=== PATIENT | male | born 1980 | race Caucasian/White ===

== ENCOUNTER 2016-06-10 18:01 | Emergency (ER) | payer MEDICARE ==
--- NOTE | ~2016-06-10 | ER ---
[facility] AGE: 35 Y [address] ROOM: [place], [place] [address] LOCATION: [facility] ADMIT DATE: 06/10/2016 ER/Outpatient Report DISCHARGE DATE: 06/10/2016 FAMILY PHYSICIAN: Physician, Unknown ATTENDING PHYSICIAN: Angle Sylvester Time of Arrival: 1801 hours. Time of Evaluation: 1820 hours. IDENTIFICATION: A 35-year-old female. CHIEF COMPLAINT: Chest pain. HISTORY OF PRESENT ILLNESS: The patient is a 35-year-old, hearing impaired male with chest pain. History was obtained through the [employer] dealer. 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 Approximately 2 weeks ago, he was seen in [place] by his family practice doctor, Dr. Hand at [facility] in [place] and started on amlodipine 5 mg daily. He also apparently had an abnormal UA which was rechecked last week. He had some microscopic hematuria, it sounds like. He has been taking the amlodipine just as needed. He did not understand that you need to take it every day. He has not yet taken it today. Today, he has had some intermittent chest pain. It is a sharp pain, left chest, no radiation and no real other associated symptoms. However, he does have a pretty significant family history of aortic abnormalities including aortic dissection and aneurysm on his dad side of the family. PAST MEDICAL HISTORY: ALLERGIES: NO KNOWN DRUG ALLERGIES. CURRENT MEDICATIONS: Amlodipine 5 mg daily. MEDICAL PROBLEMS: 1. Hearing impaired. 2. Recent diagnosis of hypertension. 3. Previous right ankle injury. 4. Previous wrist injury. SOCIAL HISTORY: [facility] AGE: 35 Y [address] ROOM: [place], [place] [address] LOCATION: [facility] ADMIT DATE: 06/10/2016 ER/Outpatient Report DISCHARGE DATE: 06/10/2016 FAMILY PHYSICIAN: Physician, Unknown ATTENDING PHYSICIAN: Angle Sylvester The patient currently living in [place]. Working here and doing construction during the week. Tobacco use: He quit 2 years ago. Alcohol use: Socially. Drug use: Denies. REVIEW OF SYSTEMS: All systems reviewed and negative other than what is noted in the HPI. FAMILY HISTORY: Positive for aortic aneurysm and dissections on dad side of the family. PHYSICAL EXAMINATION: VITAL SIGNS: Height 6 feet 0 inches, weight 96.5 kg, blood pressure 192/103, pulse 79, respirations 16, temperature 98.1 and saturations 97%. GENERAL: A 35-year-old male in no acute distress. Currently, he is pain free. HEENT: Head: Normocephalic, atraumatic. Ears: TMs translucent both ears. Nose: Mucosa pink, no lesions. Mouth: No lesions. Pharynx benign. NECK: Supple. No lymphadenopathy. LUNGS: Clear to auscultation. HEART: Regular rate and rhythm. No murmur, rub, or gallop. ABDOMEN: Bowel sounds present. Soft, nondistended, nontender. SKIN: [place], warm, and dry. No lesions or rashes noted. NEURO: The patient is alert and oriented x4. Cranial nerves 2 through 12 grossly intact. Motor strength 5/5 throughout. Sensation is intact to light touch. DIAGNOSTIC STUDIES: One-view chest x-ray, no acute process, pending Radiology over-read. UA; specific gravity 1.010, pH 7.0, trace of leukocytes, trace of ketones, negative protein, 0-2 white cells, negative red blood cells, 0-2 epithelial cells. Sodium 139, potassium 4.0, chloride 103, CO2 29, BUN 14, creatinine 1.2, blood sugar 94. Liver enzymes normal. Magnesium 2.0, CPK 326, CK-MB 4.8, troponin I less than 0.040. Hemoglobin 15.7, hematocrit 46.1, platelets 222, white count 7.1 with the normal differential. INR 1.0. EKG at 1816, normal sinus rhythm at 71 beats per minute. No acute ST elevation or depression. T-wave inversion in lead III. Repeat EKG at 2028, normal sinus rhythm at 60 beats per minute. No acute ST elevation or depression. T-wave inversion in lead III. EMERGENCY DEPARTMENT COURSE: The patient was given amlodipine 5 mg p.o. here in the emergency room. His PATIENT'S NAME: ANNE-MARIE ZURITA [facility] AGE: 35 Y [address] ROOM: [place] [id number] LOCATION: [facility] ADMIT DATE: 06/10/2016 ER/Outpatient Report DISCHARGE DATE: 06/10/2016 FAMILY PHYSICIAN: Physician, Unknown ATTENDING PHYSICIAN: Angle Sylvester blood pressure returned to 139/97. With his family history, we did do a CTA of the chest. No thoracic aortic aneurysm or dissection identified. No mediastinal hematoma. Lungs appeared clear and normal vasculature in the lungs per Dr. Mancuso, radiologist. IMPRESSION AND PLAN: 1. Hypertension. 2. Family history of aortic dissection. No evidence of aortic abnormalities on CT/PE protocol. 3. Hearing impaired. PLAN: Take amlodipine daily. No heavy exertion. Low salt diet. Follow up with physician of choice either his physician back at home if he is able to. I did give him a card here from [facility] to follow up while here in town to have his blood pressure rechecked. Follow up immediately if any problems or concerns. The patient understands and agrees, and all questions have been answered. ANGLE SYLVESTER MD CAR/modl /[id number] d: 06/11/16516 t: 06/12/16 0454, OUTPATIENT REPORT
[2016-06-10 18:37] LABS: BASOPHIL # 0.1 K/uL (0.0-0.2); BASOPHIL % 0.7 %; EOSINOPHIL # 0.1 K/uL (0.0-0.5); HEMATOCRIT 46.1 % (37.0-53.0); HEMOGLOBIN 15.7 g/dL (12.0-17.0); IMMATURE GRANULOCYTE % 0.3 %; LYMPHOCYTE # 1.7 K/uL (0.8-4.0); LYMPHOCYTE % 23.9 %; MCH 30.5 pg (27.0-34.0); MCHC 34.1 gm/dL (32.0-36.5); MCV 89.5 fl (83.0-98.0); MONOCYTE # 0.7 K/uL (0.0-1.0); MONOCYTE % 10.3 %; NEUTROPHIL # (ANC) 4.6 K/uL (1.4-9.0); NEUTROPHIL % 63.8 %; NRBC % 0 /100WBC (0-0.00); PLATELET COUNT 222 K/uL (150-450); RBC 5.15 M/uL (4.00-6.00); RDW-CV 12.4 % (11.9-14.6); WBC 7.1 K/uL (4.0-11.0)
[2016-06-10 18:45] LABS: PROTIME 10.2 SECONDS (9.6-11.1); PTT 28 SECONDS (25-32)
[2016-06-10 18:56] LABS: ALBUMIN 4.6 gm/dL (3.5-5.0); ALK PHOS 92 IU/L (33-138); ALT 29 IU/L (12-78); AST 23 IU/L (10-40); BLOOD UREA NITROGEN 14 mg/dL (6-24); CALCIUM 9.1 mg/dL (8.5-10.5); CHLORIDE 103 mMol/L (96-110); CO2 29 mMol/L (22-32); CPK 326 IU/L (35-332); CREATININE 1.2 mg/dL (0.6-1.3); ESTIMATED GFR (MDRD EQUATION) > 60; SODIUM 139 mMol/L (135-145); TOTAL BILIRUBIN 0.5 mg/dL (0.0-1.5); TOTAL PROTEIN 8.2 g/dL (6.0-8.4)
[2016-06-10 19:34] LABS: BILIRUBIN URINE NEGATIVE (NEGATIVE); BLOOD URINE NEGATIVE /UL (NEGATIVE); COLOR URINE YELLOW (YELLOW); GLUCOSE URINE NEGATIVE (NEGATIVE); KETONE URINE 5 mg/dL (NEGATIVE); LEUKOCYTES URINE 25 /UL (NEGATIVE); NITRITE URINE NEGATIVE (NEGATIVE); PROTEIN URINE NEGATIVE (NEGATIVE); TURBIDITY URINE CLEAR (CLEAR); UROBILINOGEN URINE NORMAL (NORMAL)
[2016-06-10 19:48] LABS: BACTERIA URINE FEW (NEGATIVE); EPITHELIAL URINE 0-2 #/HPF (NEGATIVE); RBC URINE NEGATIVE #/HPF (NEGATIVE); RENAL EPITH URINE NEGATIVE #/HPF (NEGATIVE); WBC URINE 0-2 #/HPF (NEGATIVE)
[2016-06-10 20:45] LABS: CPK 280 IU/L (35-332)
== END 2016-06-10 21:13 | disposition disaster alternative care site (69) ==
LOC: GMED 18:01
PROVIDERS: Family Medicine
DX: I10 Essential (primary) hypertension (principal); H91.90 Unspecified hearing loss, unspecified ear
CPT/HCPCS: Q9967